=== PATIENT | male | born 1965 | race African-American/Black ===

== ENCOUNTER 2016-11-16 22:20 | Observation (INO) | payer BC ==
--- NOTE | ~2016-11-16 | XA198 ---
[facility] A Service of [facility] & [facility] RADIOLOGY TEXT RESULTS PATIENT: RUPALI THOMPSON LOCATION: [facility] [address] : [birth year] UNIT #: [id number] AGE: [address]: Slava Shields MD SEX: M ORDER DR: [id number] [facility] [address]. [place], [place] [address] [id number] I MR#: [id number] Acc #: [id number] NAME: RUPALI THOMPSON. : 1965 SEX: M STUDY DATE/TIME: 11/17/2016 8:42 UNIT: [facility] ROOM: [facility] STUDY DESCRIPTION: XA Spinal Puncture Attending Physician: Slava Shields M.D. Ordering Physician: Kirsten Archibald M.D. Primary Care Physician: Primary Care Physician No MEDICAL IMAGING REPORT This report is preliminary unless electronic signature is present EXAM Lumbar puncture under fluoroscopy 11/17/2016 HISTORY Severe headache and vision changes over the last few days. PROCEDURE Procedure, attendant risks and options were discussed with the patient and he understands and wishes to proceed. He had attempted lumbar puncture in the emergency room unsuccessfully. The patient was placed in the prone position in the angio suite. The skin was cleansed with chlorhexadine and sterilely draped. Utilizing maximal sterile barrier technique including gloves and under local anesthesia a 20-gauge spinal needle was inserted near the lumbar subarachnoid space at the L3-4 level. A total of 12 mL of clear CSF was collected into 4 tubes. The needle was removed, hemostasis achieved and the patient returned to the emergency room. Total fluoroscopy time for the procedures was 0.8 minutes. Total exposure 31 mGy air kerma. A single spot radiograph was obtained documenting placement. IMPRESSION Successful fluoroscopically guided LP. Dictated by... Ender Turner M.D. THIS IS AN ELECTRONICALLY VERIFIED REPORT Ender Turner M.D. at 11/19/2016 2:20 PM SILVIO/amy TD: 11/18/2016 00:34 JOB #: [id number] [facility] A Service of [facility] & [facility] RADIOLOGY TEXT RESULTS PATIENT: RUPALI THOMPSON LOCATION: [facility] 577-01 : [birth year] UNIT #: [id number] AGE: [address]: Slava Shields MD SEX: M ORDER DR: MEDICAL IMAGING REPORT Page 1 of 1 COPY
--- NOTE | ~2016-11-16 | CT23 ---
[facility] A Service of [facility] & [facility] RADIOLOGY TEXT RESULTS PATIENT: RUPALI THOMPSON LOCATION: [facility] 577-01 : 65 UNIT #: [id number] AGE: [address]: Slava Shields MD SEX: M ORDER DR: [id number] [facility] [address]. [place], [place] [address] [id number] I MR#: [id number] Acc #: [id number] NAME: RUPALI THOMPSON. : 1965 SEX: M STUDY DATE/TIME: 11/17/2016 UNIT: [facility] ROOM: [id number] STUDY DESCRIPTION: CT Angio Neck Attending Physician: Kirsten Archibald M.D. Ordering Physician: Zay Camilo D.O. Primary Care Physician: Primary Care Physician No MEDICAL IMAGING REPORT This report is preliminary unless electronic signature is present EXAM CT angiogram of the neck FINDINGS Please see CT angiogram of the head for results. Dictated by... Rahul Charles Jr., M.D. THIS IS AN ELECTRONICALLY VERIFIED REPORT Rahul Charles Jr., M.D. at 11/17/2016 10:40 PM ANTHONY/jasper TD: 11/17/2016 06:58 JOB #: [id number] MEDICAL IMAGING REPORT Page 1 of 1 COPY
--- NOTE | ~2016-11-16 | CT71 ---
[facility] A Service of [facility] & [facility] RADIOLOGY TEXT RESULTS PATIENT: RUPALI THOMPSON LOCATION: [facility] [id number] : 65 UNIT #: [id number] AGE: [address]: Kirsten Archibald MD SEX: M ORDER DR: [id number] [facility] [address] [place], [place] [address] [id number] E MR#: [id number] Acc #: [id number] NAME: RUPALI THOMPSON : 1965 SEX: M STUDY DATE/TIME: 11/16/2016 22:53 UNIT: [facility] ROOM: STUDY DESCRIPTION: CT Head Wo Contrast Attending Physician: Zay Camilo D.O. Ordering Physician: Zay Camilo D.O. Primary Care Physician: No Primary Care Physician MEDICAL IMAGING REPORT This report is preliminary unless electronic signature is present EXAM CT head, 11/16/16 at 2253 hours INDICATIONS Migraine headache and hypertension. Headache and blurred vision started today. Pain currently rates 10 out of 10. FIND[address] This CT exam was performed with one or more of the following radiation dose reduction techniques: automatic exposure control, adjustment of mA and/or kV according to patient size, and iterative reconstruction. Axial images were obtained from base to vertex without contrast. Comparison made with 11/08/2009. Ventricular size and configuration are within normal limits. No acute infarct or hemorrhage is seen. There are no masses. Mucous retention cysts are present in the right maxillary sinus. There is also some debris in the right maxillary sinus which may indicate mild acute sinusitis. No skull fracture. IMPRESSION No acute findings in the brain. Note is made of probable mild acute on chronic right maxillary sinusitis. Dictated by... Rahul Charles Jr., M.D. THIS IS AN ELECTRONICALLY VERIFIED REPORT Rahul Charles Jr., M.D. at 11/17/2016 6:07 AM ANTHONY/spencer [facility] A Service of [facility] & [facility] RADIOLOGY TEXT RESULTS PATIENT: RUPALI THOMPSON LOCATION: [facility] : [birth year] UNIT #: [id number] AGE: [address]: Kirsten Archibald MD SEX: M ORDER DR: TD: 11/17/2016 01:57 JOB #: [id number] MEDICAL IMAGING REPORT Page 1 of 1 COPY
--- NOTE | ~2016-11-16 | DS ---
Unit #: [id number] #: [id number] Patient: RUPALI THOMPSON [id number] [address] [address] [id number] I MR#: [id number] NAME: RUPALI THOMPSON. ROOM: 577 Age: 51 Sex: M Admission Date: 11/17/2016 : 1965 Discharge Date: 11/18/2016 Attending Physician: Slava Shields M.D. Primary Care Physician: Amy Primary Care Physician DISCHARGE SUMMARY ADMITTING DIAGNOSIS Headaches, possible migraine. FURTHER DIAGNOSES 1. History of hypertension. 2. Asthma. HISTORY OF PRESENTING ILLNESS The patient is a 51-year-old man with a past medical history of hypertension, asthma, migraine, chronic back pain, who presented to the emergency room with a chief complaint of headache and blurred vision. HOSPITAL COURSE Initially, he mentioned his headaches were worse (1) . He complained of blurred vision (2) hospital course unsuccessful. With the pain medication and p.r.n. Zofran, his pain has resolved. The patient says now he is back to baseline. He mentions that he ate food at a fast food restaurant which started him to have his migraine headaches. He is doing clinically better. We will discharge him to home. We will request him to follow with his primary care in one to two weeks. There will be no new medications added. On the day of discharge, his physical examination: GENERAL APPEARANCE: The patient is alert, oriented x3, lying in the bed in no acute distress. VITAL SIGNS: Temperature 98.1. Pulse rate 78. Respiration 18. Blood pressure 124/86. HEENT: Normocephalic, atraumatic. No icterus. CHEST: Bilateral equal air entry. Clear to auscultation. HEART: S1, S2. Regular rate and rhythm. ABDOMEN: Soft, nontender. EXTREMITIES: No edema. No pulses. Kindly note he also had a CT angio of head and neck which only showed sinusitis. There is no plaque dissection of the carotid or vertebral vasculature and no evidence of stenosis. He had a CT of the head which was essentially normal without contrast. DISCHARGE MEDICATIONS 1. Albuterol inhaler one inhalation four times a day p.r.n. shortness of breath. 2. Losartan 50 mg daily. 3. Aspirin 81 mg daily. Unit #: [id number] #: [id number] Patient: RUPALI THOMPSON He is instructed to follow with his primary care. Total time spent in his care-28 minutes. Dictated by... Rodriguez Zabala TD: 11/20/2016 08:31 JOB #: [id number] DISCHARGE SUMMARY Page 1 of 1 X X DISCHARGE SUMMARY
--- NOTE | ~2016-11-16 | CT17 ---
[facility] A Service of [facility] & [facility] RADIOLOGY TEXT RESULTS PATIENT: RUPALI THOMPSON LOCATION: [facility] 577-01 : [birth year] UNIT #: [id number] AGE: [address]: Slava Shields MD SEX: M ORDER DR: [id number] [place] [address] [place], [place] [address] [id number] I MR#: [id number] Acc #: [id number] NAME: RUPALI THOMPSON. : 1965 SEX: M STUDY DATE/TIME: 11/17/2016 02:40 UNIT: [facility] ROOM: [address]6633 STUDY DESCRIPTION: CT Angio Head Attending Physician: Kirsten Archibald M.D. Ordering Physician: Zay Camilo D.O. Primary Care Physician: Primary Care Physician No MEDICAL IMAGING REPORT This report is preliminary unless electronic signature is present EXAM Head and neck CT angiogram 11/17/2016 at 02:40 INDICATION Frontal headache with blurred vision and hypertension started at 2 o'clock yesterday afternoon. TECHNIQUE Axial images were obtained through the head and neck following IV contrast administration. 3-D reformats were obtained. No comparison CTA. This CT examination was performed with one or more of the following radiation dose reduction techniques: automatic exposure control, adjustment of mA and/or kV according to patient size, and iterative reconstruction. FINDINGS Within the neck, there is no evidence of cervical carotid or vertebral stenosis by NASCET criteria. No plaque disease is seen. There is no dissection. Vertebral arteries are codominant. Intracranially, there is no flow-limiting stenosis or vascular malformation identified. No aneurysm is seen. There is no vessel cutoff. Major dural venous sinuses are patent. The lung apices are clear. Soft tissues of the neck are unremarkable. IMPRESSION Negative head and neck CT angiogram. In the neck, there is no plaque or dissection in the carotid vertebral vasculature. No stenosis by NASCET criteria. Intracranially, there is no stenosis by NASCET criteria. No aneurysm or vessel cutoff is seen. Dictated by... Rahul Charles Jr., M.D. [facility] A Service of [facility] & [facility] RADIOLOGY TEXT RESULTS PATIENT: RUPALI THOMPSON LOCATION: [facility] 57- : [birth year] UNIT #: [id number] AGE: [address]: Slava Shields MD SEX: M ORDER DR: THIS IS AN ELECTRONICALLY VERIFIED REPORT Rahul Charles Jr., M.D. at 11/17/2016 10:39 PM ANTHONY/jasper TD: 11/17/2016 06:54 JOB #: [id number] MEDICAL IMAGING REPORT Page 1 of 1 COPY
--- NOTE | ~2016-11-16 | HP ---
Unit #: [id number] #: [id number] Patient: RUPALI THOMPSON [id number] [address] [place], [place] [address] [id number] I MR#: [id number] NAME: RUPALI THOMPSON. ROOM: [address]003 Age: 51 Sex: M Admission Date: 11/17/2016 : 1965 Attending Physician: Kirsten Archibald M.D. Primary Care Physician: No Primary Care Physician HISTORY AND PHYSICAL CHIEF COMPLAINT Headache and blurred vision. HISTORY This pleasant 51-year-old male with hypertension, asthma, migraine headaches, is admitted for headache and blurred vision. The patient states that he was well until he developed blurred vision at 1:30 yesterday afternoon. His vision was blurred bilaterally. He developed a frontal headache, which became intense despite Tylenol. Then developed nausea and vomiting. He presented to this emergency department last evening, afebrile with a blood pressure of 148/92. He stated that his headache was more intense than his usual migraines. He was treated with IV fluids, given Benadryl, Decadron, and morphine IV, along with Zofran and currently is feeling improved. Given that patient has never had a similar headache in the past, an LP was attempted but was unsuccessful. Head CT shows right maxillary sinusitis but the patient denies symptoms of acute sinusitis. PAST MEDICAL HISTORY 1. Hypertension. 2. Migraine headaches. 3. Asthma. ALLERGIES None. HOME MEDICATIONS Losartan 50 mg daily; albuterol MDI; aspirin 81 mg daily. FAMILY HISTORY Malignancy. SOCIAL HISTORY The patient lives alone. He is a lifelong nonsmoker and does not drink alcohol. REVIEW OF SYSTEMS Notable for headache, blurred vision, hypertension, migraines, asthma. All other systems were reviewed and otherwise negative. PHYSICAL EXAMINATION GENERAL: Pleasant, mildly obese, 51-year-old male who looks younger than stated age. Unit #: [id number] #: [id number] Patient: RUPALI THOMPSON VITAL SIGNS: Temperature 97.9, pulse 90, respirations 18, blood pressure 148/92, O2 saturation is 100% on room air. HEENT: Eyes - PERRLA, extraocular muscles are intact. Pharynx is benign. NECK: Supple without adenopathy or thyromegaly. CHEST: Clear. CARDIAC: Normal S1 and S2 without S3, S4, or murmur. ABDOMEN: Bowel sounds are present. No hepatosplenomegaly, tenderness or masses. EXTREMITIES: Without clubbing, cyanosis or edema. Pedal pulses are present. NEUROLOGIC: Patient is awake, alert, oriented x3. His cranial nerves are intact. He has +5/5 strength throughout. Normal rapid alternating movements. Normal finger to nose. Negative pronator drift. DIAGNOSTIC STUDIES LABORATORY STUDIES: Hematocrit is 43.1, normal white count and platelet count. Negative cardiac enzymes. SMA 12 is normal except for a glucose of 131. Urine tox screen negative. Urinalysis is negative. Cardiac markers negative. IMAGING STUDIES: Head CT - no acute disease except for right maxillary sinusitis. ASSESSMENT 1. Headache and blurred vision likely representing a complicated migraine. 2. History of migraines. 3. Essential hypertension. PLANS Check CTA of the head and neck to rule out aneurysm and an LP to rule out sentinel bleed. Again, however, I believe symptoms are likely related to a complicated migraines. Dictated by Rodriguez Hobbs/ts TD: 11/17/2016 05:00 JOB #: [id number] CC: Bernardo Baker M.D. HISTORY AND PHYSICAL Page 1 of 1 X Kirsten Archibald MD HISTORY AND PHYSICAL
[2016-11-16 22:50] LABS: URINE SOURCE CLEAN CATCH
[2016-11-16 22:55] LABS: BASOPHIL% 0.4 % (0-2.5); EOSINOPHIL% 0.6 % (0.0-7.0); HEMATOCRIT 43.1 % (38.0-50.0); HEMOGLOBIN 13.8 gm/dL (13.0-16.0); LYMPHOCYTE# 0.9 X10e3 (1.0-3.5); MEAN CELL VOLUME 89.6 FL (83-96); MEAN CORPUSCULAR HEMOGLOBIN 28.7 PG (28-34); MEAN CORPUSCULAR HGB CONC 32.1 g/dL (30-36); MEAN PLATELET VOLUME 8.1 FL (6.5-11.5); MONOCYTE# 0.3 X10e3 (0-1.0); MONOCYTE% 4.2 % (3.0-12.0); NEUTROPHIL# 6.7 X10e3 (1.5-7.1); NEUTROPHIL% 83.8 % (40-75); PLATELET COUNT 228 X10e3 (140-420); RED BLOOD COUNT 4.81 X10e (3.90-5.60); RED CELL DISTRIBUTION WIDTH 12.8 % (11.0-15.5); WHITE BLOOD COUNT 7.9 X10e3 (4.0-10.5)
[2016-11-16 22:56] LABS: DIFF IND NO
[2016-11-16 22:59] LABS: URINE APPEARANCE CLEAR; URINE BILIRUBIN NEG (NEG); URINE BLOOD NEG (NEG); URINE COLOR YELLOW; URINE GLUCOSE NEG (NEG); URINE KETONE NEG (NEG); URINE LEUKOCYTE ESTERASE NEG (NEG); URINE NITRATE NEG (NEG); URINE PROTEIN NEG (NEG); URINE SPECIFIC GRAVITY 1.011 (1.003-1.035); URINE UROBILINOGEN 0.2 MG/DL (NEG)
[2016-11-16 22:59] LABS: POC - CKMB <1.0 ng/mL (0.0-7.9); POC - TROPONIN <0.05 ng/mL (<=0.05)
[2016-11-16 23:04] LABS: AMPHETAMINE NEG (NEG); BARBITURATES NEG (NEG); BENZODIAZEPINES NEG (NEG); COCAINE NEG (NEG); MARIJUANA NEG (NEG); OPIATES NEG (NEG); TRICYCLIC ANTIDEPRESSANTS NEG (NEG); U METHADONE NEG (NEG)
[2016-11-16 23:07] LABS: CULTURE INDICATED? NO
[2016-11-16 23:22] LABS: ALBUMIN SERUM 4.4 g/dL (3.5-5.0); ALKALINE PHOSPHATASE 60 U/L (32-92); ALT (SGPT) 25 U/L (10-40); AST (SGOT) 20 U/L (10-42); BILIRUBIN,TOTAL 0.4 mg/dL (0.2-2.0); BLOOD UREA NITROGEN 13 mg/dL (9-23); CALCIUM SERUM 8.9 mg/dL (8.4-10.2); CARBON DIOXIDE 26 mmol/L (22-31); CHLORIDE 101 mmol/L (100-111); GLOM FILT RATE Estimated 100.6 mL/min (>60); GLUCOSE FASTING 131 mg/dL (70-110); POTASSIUM 4.3 mmol/L (3.5-5.1); PROTEIN TOTAL SERUM 7.9 g/dL (6.0-8.3); SODIUM 135 mmol/L (135-145)
[2016-11-16 23:23] LABS: BILIRUBIN, DIRECT <0.1 mg/dL (0.0-0.2); BILIRUBIN,INDIRECT 0.3 mg/dL (0.0-0.9)
[2016-11-17] MEDS ORDERED: LOSARTAN POTASS50 MG PO (01:29)
[2016-11-17] MEDS ORDERED: CHEWABLE ASPIRI81 MG PO (07:36)
[2016-11-17 08:10] LABS: PARTIAL THROMBOPLASTIN TIME 26.8 SECONDS (23.5-31.3)
[2016-11-17] MEDS ORDERED: ALBUTEROL20 ml INH (11:01)
[2016-11-17 11:06] LABS: CSF APPEARANCE CLEAR (CLEAR); CSF TUBE NUMBER 1; CSF XANTHACHROMIC NO
[2016-11-17 11:08] LABS: CSF RBC 9 CMM (0); CSF WBC 1 CMM (0-8)
[2016-11-17 11:09] LABS: CSF APPEARANCE CLEAR (CLEAR); CSF RBC 1 CMM (0); CSF TUBE NUMBER 4; CSF WBC 1 CMM (0-8); CSF XANTHACHROMIC NO
[2016-11-17 11:15] LABS: PROTEIN-CSF 42 mg/dL (15-45)
[2016-11-17 11:16] LABS: GLUCOSE-CSF 71 mg/dL (50-80)
[2016-11-17 12:05] LABS: CSF LYMPHOCYTE 92 %; CSF MONOCYTE 8 %
[2016-11-17 12:07] LABS: CSF MONOCYTE 6 %
[2016-11-17 12:08] LABS: CSF LYMPHOCYTE 94 %
== END 2016-11-18 19:12 | disposition home or self-care (01) | DRG 103 ==
LOC: CED 22:20 → CEDOF 11-17 03:20 → C5C 11-17 09:30
PROVIDERS: Emergency Medicine; Internal Medicine
DX: R51 Headache (principal); H53.8 Other visual disturbances; I10 Essential (primary) hypertension; J45.909 Unspecified asthma, uncomplicated; Z79.82 Long term (current) use of aspirin; Z80.9 Family history of malignant neoplasm, unspecified
CPT/HCPCS: 36415; 70450; 70496; 70498; 77003; 80048; 80076; 80307; 81003; 82553; 82945; 84157; 84484; 85025; 85610; 85730; 87070; 87205; 89051; 96361; 96374; 96375; 99285; G0378; J1100; J1200; J2270; J2405; Q9967